=== PATIENT | female | born 1945 | race Caucasian/White ===

== ENCOUNTER 2019-11-04 11:11 | Inpatient (IN) ==
--- NOTE | 2019-10-10 10:13 | PAT Medication Instructions ---
Medication Instructions Date of Service October 10, 2019 Home Medications calcium carbonate-vitamin D3 [Calcium 500 With D] 2 tab PO DAILY coenzyme Q10 [Co Q-10] 100 mg PO DAILY cyanocobalamin (vitamin B-12) [Vitamin B-12] 1,000 mcg PO DAILY multivitamin with minerals 1 ml PO DAILY vitamin B complex 1 tab PO DAILY STOP taking 2 weeks before surgery (or as soon as possible if surgery is within 2 weeks) coenzyme Q10 [Co Q-10] 100 mg PO DAILY DO NOT take the morning of surgery calcium carbonate-vitamin D3 [Calcium 500 With D] 2 tab PO DAILY cyanocobalamin (vitamin B-12) [Vitamin B-12] 1,000 mcg PO DAILY multivitamin with minerals 1 ml PO DAILY vitamin B complex 1 tab PO DAILY Other Notes If you have any questions please call us at [phone] or [phone] or [phone] or [phone]
--- NOTE | 2019-10-11 11:33 | Anesthesiology Consultation ---
Date of Service October 11, 2019 Assessment & Plan (1) Encounter for pre-operative examination: Per PAT assessment on 10/10: Travel screen- Lives in [facility]. Return from travel to [place] 10/07 ([place], [place]). Patient brought food from home, + social distancing/wore mask/frequent hand washing. No public interactions. DOS greater than 2 weeks since return from travel. Patient advised to refrain from further travel until after surgery (she voiced understanding). No known COVID-19 positive contacts. No current COVID-19 related symptoms. Surgeon arranging preop COVID testing. Awaiting results. Chart Review Chart Review: Acceptable Risk for Surgery and Patient seen in Pre Admission Testing Teaching & Discussion Pre-Anesthesia Teaching/Discussion Notes: Instructed NPO after midnight before surgery,except medications with 15 cc of water. Medication instructions provided according to the PAT guidelines. History Surgery Operation Date: 11/04/19 08:30 Proposed Procedures p Left Reverse Total Shoulder Arthroplasty - Luther Carrington, Height/Weight Height: 5 ft 10 in Weight: 79.5 kg Allergies Allergy/AdvReac Type Severity Reaction Status Date / Time Penicillins Allergy Unknown HIVES Verified 09/29/19 11:47 Medications Home Medications Medication Instructions Recorded Confirmed Last Taken calcium carbonate-vitamin D3 2 tab PO DAILY 09/29/19 09/29/19 Unknown [Calcium 500 With D] coenzyme Q10 [Co Q-10] 100 mg PO DAILY 09/29/19 09/29/19 Unknown cyanocobalamin (vitamin B-12) 1,000 mcg PO DAILY 09/29/19 09/29/19 Unknown [Vitamin B-12] multivitamin with minerals 1 ml PO DAILY 09/29/19 09/29/19 Unknown vitamin B complex 1 tab PO DAILY 09/29/19 09/29/19 Unknown Past Medical History Medical History (Updated 10/11/19 @ 15:04 by Vanessa Field) Osteoarthritis Spinal stenosis Exercise / Class Metabolic Activity II 4-5 Yardwork/Stairs/Walk up hill Past Family History Family History Daughter Family history of carcinoma in situ of anal canal, Onset Age: 46 Brother Family hx of colon cancer Other No family history of adverse response to anesthesia Past Surgical History Surgical History (Updated 10/11/19 @ 15:04 by Vanessa Field) History of colonoscopy S/P lumbar laminectomy x2 S/P vaginal hysterectomy Past Anesthesia History Other Patient: "Slow to wake" specifically after hysterectomy ([facility] ~2014). Prolonged stay in the PACU (5 hours) but per patient, was able to be discharged the same day without issue. No known hx of reintubation.* Mother: "slow to wake" History of PONV No Hx of PONV and No Hx of Motion Sickness Social History Smoking Status: Never smoker Do You Dip or Chew Tobacco: No Hx Alcohol Use: Yes alcohol intake frequency: holidays/special occasions only Hx Substance Use: No substance use type: does not use Review of Systems Patient denies chest pain, shortness of breath, dyspnea on exertion, fever, chills, cough, wheezing, palpitations. Physical Exam Vital Signs VITALS BP 116/77 P 68 TEMP 98.3 SP02 100%RA RESP 18 PHYSICAL Full neck and c-spine range of motion. Full TMJ range of motion. TMD 3 finger breaths Mallampati Score 1 Dentition: intact, + implants on left side upper/lower Lungs: clear throughout to auscultation Cardiac: regular rate and rhythm, no murmurs noted Spine: normal Carotid arteries: negative bruit Extremities: no edema Testing Laboratory Results 10/11/19 12:08 10/11/19 12:08 PT 10.6 Seconds (9.0-12.0) 10/11/19 12:08 INR 1.0 (0.9-1.1) 10/11/19 12:08 APTT 25.4 Seconds (21.0-31.0) 10/11/19 12:08 Blood Type A Positive 10/11/19 12:08 Antibody Screen NEGATIVE 10/11/19 12:08 Electrocardiogram Date: 10/11/19 NSR at 72bpm. "Normal ECG." unconfirmed report. Chest X-Ray Date: 10/11/19 Findings: + NAD
--- NOTE | 2019-10-11 12:35 | XRay Report ---
XR chest Pre-admission PA/Lat CLINICAL HISTORY: pat preoperative COMPARISON STUDY: No previous studies for comparison. FINDINGS: The bones soft tissues and hemidiaphragms are normal. The cardiomediastinal silhouette is n ormal. The lungs are clear. The pulmonary vasculature is normal. IMPRESSION: Negative chest. ACT 112: Negative or not required by law. The above report was generated using voice recognition software. It may contain grammatical, syntax or spelling errors. Electronically signed by: Marivn Leonardo M.D. 10/11/2019 12:34 PM
[2019-10-11 13:17] LABS: Basophils # (auto) 0.02 K/uL (0-0.2); Basophils % (auto) 0.4 %; Eosinophils % (auto) 2.1 %; Hematocrit (blood only) 41.5 % (37-47); Hemoglobin 13.5 g/dL (12.0-16.0); Immature Granulocytes # (auto) 0.02 K/uL (0.00-0.02); Immature Granulocytes % (auto) 0.4 %; Lymphocytes # (auto) 1.17 K/uL (1.2-3.4); Lymphocytes % (auto) 24.5 %; Mean Corpuscular Hemoglobin 29.1 pg (25-34); Mean Corpuscular Hgb Conc 32.5 g/dL (32-36); Mean Corpuscular Volume 89.4 fL (80-100); Mean Platelet Volume 11.2 fL (7.4-10.4); Monocytes # (auto) 0.48 K/uL (0.11-0.59); Neutrophils # (auto) 2.99 K/uL (1.4-6.5); Neutrophils % (auto) 62.6 %; Platelet Count 198 K/uL (130-400); RDW Coefficient of Variation 14.3 % (11.5-14.5); RDW Standard Deviation 46.8 fL (36.4-46.3); Red Blood Count 4.64 M/uL (4.2-5.4); White Blood Count 4.78 K/uL (4.8-10.8)
[2019-10-11 13:27] LABS: Partial Thromboplastin Ratio 0.9; Partial Thromboplastin Time 25.4 Seconds (21.0-31.0); Prothrombin Time 10.6 Seconds (9.0-12.0)
[2019-10-11 13:45] LABS: BUN Creatinine Ratio 27.9 (10-20); Calcium 9.4 mg/dl (8.5-10.1); Creatinine Clr Calc Pharmacy 56.2 ml/min; Est GFR (African American) 68.4; Potassium 4.3 mmol/L (3.5-5.1)
--- NOTE | 2019-10-11 16:40 | Electrocardiogram Report ---
Test Reason : Blood Pressure : / mmHG Vent. Rate : 072 BPM Atrial Rate : 072 BPM P-R Int : 164 ms QRS Dur : 078 ms QT Int : 414 ms P-R-T Axes : 079 011 066 degrees QTc Int : 453 ms Normal sinus rhythm Normal ECG No previous ECGs available Confirmed by Curry Sepulveda ([id number]) on 10/11/2019 4:40:27 PM Referred By: Luther Carrington Confirmed By:Pepe Sepulveda
--- NOTE | 2019-11-03 07:55 | History & Physical Report ---
Date of Service November 03, 2019 Assessment & Plan (1) Osteoarthritis, shoulder: Given her weakness and poor function, we will proceed with a left reverse shoulder arthroplasty. Postoperatively she will be placed in a sling and kept overnight in the hospital for postoperative medical management. She plans to go to outpatient physical therapy at [facility] in [place] after discharge. Present on Admission?: Yes History of Present Illness Chief Complaint: Primary osteoarthritis of the left shoulder Primary Care Provider: NO PCP Lucia is a pleasant 74-year-old female who is been having severe shoulder pain and weakness over the past few months. She has been taking care of her . Is to the point where she is unable to lift her arm. X-rays and clinical examination were diagnostic for advanced arthritis of the shoulder with a probable large rotator cuff tear. After failing conservative treatment, she has elected to proceed with a left reverse shoulder arthroplasty. Allergies Allergy/AdvReac Type Severity Reaction Status Date / Time Penicillins Allergy Unknown HIVES Verified 09/29/19 11:47 Home Medications Home Medications Medication Instructions Recorded Confirmed Type calcium carbonate-vitamin D3 2 tab PO DAILY 09/29/19 09/29/19 History [Calcium 500 With D] coenzyme Q10 [Co Q-10] 100 mg PO DAILY 09/29/19 09/29/19 History cyanocobalamin (vitamin B-12) 1,000 mcg PO DAILY 09/29/19 09/29/19 History [Vitamin B-12] multivitamin with minerals 1 ml PO DAILY 09/29/19 09/29/19 History vitamin B complex 1 tab PO DAILY 09/29/19 09/29/19 History Past Med/Surg History Medical History Osteoarthritis Spinal stenosis Surgical History History of colonoscopy S/P lumbar laminectomy x2 S/P vaginal hysterectomy Family History Daughter Family history of carcinoma in situ of anal canal, Onset Age: 46 Brother Family hx of colon cancer Other No family history of adverse response to anesthesia Social History Smoking Status: Never smoker Second Hand Exposure: No; Hx Alcohol Use: Yes Hx Substance Use: No Preferred Language: British Communication Ability: Effective Kiln Placer Required: No Beliefs That Will Affect Care: None Current Living Situation: Spouse Feels Safe at Home: Yes Review of Systems Review of Systems: All systems reviewed & are unremarkable except as noted in HPI & below Physical Exam Constitutional: WD/WN, vitals as above Eyes: PERRL, conjunctivae normal, anicteric sclerae ENMT: external ear and nose normal, oropharynx normal Neck: trachea midline, no thyromegaly Respiratory: normal respiratory effort Cardiovascular: RRR, no murmur, no edema Gastrointestinal (Abdomen): normal bowel sounds, soft, nontender, no hepatosplenomegaly Musculoskeletal: Physical examination of the left shoulder reveals decreased range of motion and crepitis throughout. There is good strength with full can testing and external rotation. There is tenderness palpation along the anterior glenohumeral joint line. The right upper extremity is neurovascularly intact. Psychiatric: A+Ox3, euthymic affect Results & Data Results & Data ([facility]) Diagnostic Findings Radiographs of the left shoulder show osteoarthritis of the glenohumeral joint. There is joint space narrowing, osteophyte formation, and [id number] articulation. PG Care Time/CCT Total # of Minutes Spent Total Time Spent with Patient: Total time spent is greater than 50% in coordination of care (as documented) at patient's floor/unit and/or counseling patient: Coding Level of Care Code 74788 Initial Inpt Care Lvl 2 Diagnoses Osteoarthritis, shoulder M19.019
--- NOTE | 2019-11-04 11:08 | History & Physical Bridge Note ---
Date of Service November 04, 2019 History & Physical Bridge Note I have examined the patient, reviewed the History & Physical and in the interval since the performance of the History & Physical I have noted the following changes of clinical significance: no changes noted
[~2019-11-04 11:11] MED LIST: ACETAMINOPHEN 500 MG TAB PO SCH; BUPIVACAINE 0.5 % 5 MG/1 ML PF 10ML VIAL ONE; CEFAZOLIN 1000MG 1,000 MG/7.5 ML SYR IV SCH; DEXAMETHASONE SOD INJ 4 MG/ML VIAL ONE; FAMOTIDINE 20 MG TAB PO SCH; GABAPENTIN 300 MG CAP PO SCH; LIDOCAINE HCL 2% 2 ML VIAL/AMP(20MG/ML) INFIL ONE; LR 15ML/HR IV SCH; LR 60ML/HR IV SCH; MIDAZOLAM HCL 1 MG/ML 2ML VIAL ONE; Nursing to Pharmacy Communication SCH; ONDANSETRON INJ 2 MG/ML 2 ML VIAL ONE; PROPOFOL IV EMULSION 10 MG/ML 20 ML VIAL IV ONE; ROPIVACAINE 0.5% HCL/PF 150 MG, BUPIVACAINE 0.5% MPF 30 ML, EPINEPHrine 30MG/30ML (OR U... INSTIL SCH; TRANEXAMIC ACID 1,000 MG **IV Intra-op IV SCH; TRANEXAMIC ACID 1,000 MG **IV Pre-op IV SCH; dexAMETHasone 4 MG TAB PO SCH; fentaNYL citrate 100 MCG/2 ML VIAL ONE
[2019-11-04] MEDS ORDERED: ORTHO JOINT ANESTHETIC ONE (12:39)
[2019-11-04] MEDS ORDERED: ePHEDrine sulfate 50 MG/ML SYR ONE ×2 (13:34→13:47)
[2019-11-04] MEDS ORDERED: ePHEDrine sulfate 50 MG/ML AMP ONE (13:47)
--- NOTE | 2019-11-04 14:14 | Operative Report ---
PG Post Operative Report Pre & Post Diagnosis Operation Date: 11/04/19 13:40 Pre-Op Diagnosis: DJD LEFT SHOULDER Post-Op Diagnosis: DJD LEFT SHOULDER with rotator cuff tear and tendinopathy of the long head of the biceps tendon I identified the patient and participated in the time-out.: Yes Procedure Operation Date: 11/04/19 13:40 Actual Procedures p Left Reverse Total Shoulder Arthroplasty with open biceps tenodesis as a distinct and separate procedure (modifier 59) (Left) - Luther Carrington DO Surgeon Luther Carrington DO Director Recreation Luther Carr PAC Estimated Blood Loss 150 Findings Consistent with Post-Op Diagnosis Specimens Left reverse shoulder arthroplasty Complications none Disposition Disposition: Recovery Room Indications Lucia is a pleasant 74-year-old female who is been dealing with chronic increasing left shoulder pain. X-rays and clinical examination are diagnostic for advanced osteoarthritis. On clinical examination, she had significant weakness of the left shoulder. After failing conservative treatment, she elected proceed with a left reverse shoulder arthroplasty. Description of Procedure A CPT code modifier 59: The long head of the biceps tendon was enlarged and inflamed consistent with tendinopathy. A tenodesis was opted. This was a separate and distinct portion of the procedure. For these reasons, a CPT code modifier 59 will be added to this case. Implants used: I used a [employer] Comprehensive reverse total shoulder arthroplasty system with a size 12 press fit micro humeral stem, a standard humeral tray and a standard humeral bearing, a 25 mm baseplate with a 6.5 mm central screw and superior and inferior locking screws, and a size 40 mm eccentric glenosphere. Rosa arrived at [facility] for the above procedure. She was seen in the preoperative holding area and the operative extremity was identified and signed. She was given a preoperative antibiotic, TXA, and an interscalene nerve block. She was taken back to the operating room, laid on table in supine position, and put under general anesthesia. She was then put into the beachchair position. The shoulder was then prepped and draped in sterile fashion. A timeout was done and the patient and the operative extremity was properly identified. A deltopectoral approach was used. Dissection was taken down through the fascia and the deltoid was retracted laterally and the conjoined tendon was retracted medially. The anterior shoulder was exposed. The biceps groove was opened up and the biceps tendon was examined extensively. The biceps tendon demonstrated enlargement and inflammatory changes consistent with longstanding inflammation in the context of osteoarthritis and cuff arthropathy. The long head of the biceps tendon was then tenodesed to the upper border of the pectoralis major. This was a separate and distinct portion of the procedure. The subscapularis was then directly released off the lesser tuberosity with a peel technique. The inferior capsule was released and the humeral head was dislocated. A canal finding reamer was sent down the center of the humeral canal. Sequential reaming up to a size 12 reamer was done. Off that reamer, a proximal humeral resection guide was placed. The proximal humerus was resected at 135 of inclination and 25 of retroversion. Osteophytes were then removed and the glenoid was exposed. Time was spent doing a complete capsular and labral release. The glenoid guide was then placed in the inferior aspect of the glenoid. A 3.2 mm Steinmann pin was then placed into the glenoid vault at 10 of inclination. The glenoid baseplate was then reamed. The final size 25 mm baseplate was then impacted in the place. A 6.5 mm central screw was then placed followed by sup erior and inferior locking screws. A 40 mm eccentric glenosphere was then impacted into place. Surrounding soft tissues were then injected with 100 cc an orthopedic pain control cocktail. The proximal humerus was then exposed. Sequential broaching of the humerus up to a size 12 broach was done. Off that broach a standard humeral tray was trialed. The shoulder was then reduced, brought through a full range of motion, and felt to be stable. The shoulder was then dislocated and the broach was removed. The final size 12 micro press-fit humeral stem was then impacted into place. A standard humeral bearing was then snapped onto a standard humeral tray. The humeral tray was then impacted onto the humeral stem. The shoulder was once again reduced, brought through a full range of motion, and felt to be stable. The subscapularis was then tenodesed back to the lesser tuberosity with transosseous FiberWire sutures and side to side sutures with the arm in 45 of external rotation. A dilute betadyne lavage was then done for 3 minutes. The joint was then irrigated with normal saline solution. Hemostasis was obtained. The interval was closed with 2-0 Vicryl suture. The skin was then closed with 2-0 Vicryl and neo. A Silverlon dressing was placed and the arm was rested in a regular arm sling. She was then extubated and transferred to a hospital bed. She taken to the postanesthesia care unit in stable condition. She tolerated the procedure well. Luther Carr PA-C, was present for the entire procedure. He was critical for patient positioning, prepping, draping, retraction exposure, wound closure and application of sterile dressing. I attest to the content of the Intraoperative Record and any orders documented therein. Any exceptions are noted below.
--- NOTE | 2019-11-04 15:03 | XRay Report ---
XR shoulder LT min 2V routine CLINICAL HISTORY: Post shoulder surgery COMPARISON STUDY: None. FINDINGS: Status post reverse left total shoulder arthroplasty. The hardware is intact. Skin neo are in place. No fracture or dislocation within the left shoulder. IMPRESSION: Status post reverse left total shoulder arthroplasty. No evidence for hardware complicat ion. ACT 112: Negative or not required by law. Electronically signed by: Rakesh Bucio M.D. 11/04/2019 3:02 PM
--- NOTE | 2019-11-04 15:03 | Anesthesiology Progress Note ---
Date of Service November 04, 2019 Anesthesia Post Procedure Vital Signs Vital Signs: Temp Pulse Pulse Resp BP Pulse Ox 11/04/19 15:00 102 H 16 126/67 96 11/04/19 14:50 107 H 16 112/70 97 11/04/19 14:40 103 H 16 131/70 97 11/04/19 14:33 36.2 C L 110 H 16 135/70 97 11/04/19 12:03 36.6 C 75 18 154/71 H 95 Transfer of Care Handoff Completed per policy Notes Mental Status: alert / awake / arousable Patient Amnestic to Procedure: Yes Nausea / Vomiting: adequately controlled Pain: adequately controlled Airway Patency, RR, SpO2: stable & adequate BP & HR: stable & adequate Hydration State: stable & adequate Anesthetic Complications: no major complications apparent Notes: block working well in pacu
[2019-11-04] MEDS ORDERED: ONDANSETRON INJ 2 MG/ML 2 ML VIAL IV PRN (15:44)
[2019-11-04] MEDS ORDERED: bisacodyL 10 MG SUPP PR PRN (15:44)
[2019-11-04] MEDS ORDERED: METOCLOPRAMIDE HCL INJ 5 MG/ML 2 ML VIAL IV PRN (15:44)
[2019-11-04] MEDS ORDERED: HYDROmorphone INJ 0.5 MG/0.5 ML SYR IV PRN (15:44)
[2019-11-04] MEDS ORDERED: MAGNESIUM HYDROXIDE SUSP 30 ML UDC PO PRN (15:44)
[2019-11-04] MEDS ORDERED: NALOXONE HCL 0.4 MG/1 ML VIAL/CARP IV PRN (15:44)
[2019-11-04] MEDS ORDERED: OXYCODONE HCL IR 5 MG TAB (IMMEDIATE RELEASE) PO PRN (15:44)
[2019-11-04] MEDS ORDERED: PNEUMOCOCCAL POLYSACCHARIDES 25 MCG/0.5 ML VIAL/SYR IM ONE (15:52)
[2019-11-04] MEDS ORDERED: PNEUMOCOCCAL ADMINISTRATION CHARGE ONE (15:52)
[2019-11-04] MEDS: KETOROLAC TROMETHAMINE 15 MG/ML VIAL IV SCH (17:18)
[2019-11-04] MEDS: SODIUM CHLORIDE 0.9% 1000ML 1,000 ML IV SCH (17:18)
[2019-11-04] MEDS: CEFAZOLIN 2000MG 2,000 MG/15 ML SYR IV SCH (20:39)
[2019-11-04] MEDS: DOCUSATE SODIUM 100 MG CAP PO SCH (20:42)
[2019-11-04] MEDS ORDERED: SENNA 8.6 MG TAB PO SCH (21:00)
[2019-11-04] MEDS: ACETAMINOPHEN 500 MG TAB PO SCH (22:10)
[2019-11-05] MEDS: KETOROLAC TROMETHAMINE 15 MG/ML VIAL IV SCH ×2 (00:09→05:15)
[2019-11-05] MEDS: SODIUM CHLORIDE 0.9% 1000ML 1,000 ML IV SCH (01:56)
[2019-11-05] MEDS: CEFAZOLIN 2000MG 2,000 MG/15 ML SYR IV SCH (05:14)
[2019-11-05] MEDS: ACETAMINOPHEN 500 MG TAB PO SCH (05:15)
[2019-11-05 06:06] LABS: Eosinophils # (auto) 0.01 K/uL (0-0.5); Eosinophils % (auto) 0.1 %; Hemoglobin 11.5 g/dL (12.0-16.0); Immature Granulocytes # (auto) 0.02 K/uL (0.00-0.02); Immature Granulocytes % (auto) 0.2 %; Lymphocytes # (auto) 0.86 K/uL (1.2-3.4); Mean Corpuscular Hemoglobin 28.8 pg (25-34); Mean Corpuscular Hgb Conc 32.9 g/dL (32-36); Mean Corpuscular Volume 87.5 fL (80-100); Mean Platelet Volume 10.5 fL (7.4-10.4); Monocytes # (auto) 0.83 K/uL (0.11-0.59); Monocytes % (auto) 7.7 %; Neutrophils # (auto) 9.08 K/uL (1.4-6.5); Platelet Count 139 K/uL (130-400); RDW Coefficient of Variation 14.2 % (11.5-14.5); RDW Standard Deviation 45.5 fL (36.4-46.3)
[2019-11-05 06:38] LABS: BUN Creatinine Ratio 22.1 (10-20); Calcium 8.5 mg/dl (8.5-10.1); Creatinine Clr Calc Pharmacy 54.5 ml/min; Est GFR (African American) 65.9; Est GFR (Non-African American) 56.8; Potassium 4.5 mmol/L (3.5-5.1)
--- NOTE | 2019-11-05 07:55 | Orthopedic Progress Note ---
Date of Service November 05, 2019 Assessment & Plan (1) Status post reverse arthroplasty of left shoulder: Overall she is doing very well. She will be seen by physical therapy this morning for ambulation and range of motion exercises. She can be discharged home later today. She will follow-up with orthopedics in 2 weeks. Present on Admission?: Yes Admission and Anticipated Discharge Date Admission Date: November 04, 2019 Jaky Myers was seen and examined at bedside this morning. Overall she is doing very well. She is not having any pain in the left shoulder. The nerve block is still working. She was able to get some sleep last night. She has no complaints. Physical Exam Musculoskeletal: On physical examination of the left shoulder, the Silverlon dressing is clean and dry. She is wearing her sling as instructed. She does not have any movement of her wrist or fingers yet, the nerve block is still working. Results & Data ([facility]) Vital Signs (Past 12 Hours) Vital Signs Temp Pulse Resp BP Pulse Ox 11/05/19 07:32 36.4 C L 16 94/60 L 95 11/05/19 03:05 36.4 C L 89 16 99/63 L 96 11/04/19 23:17 36.5 C 95 H 18 97/61 L 94 Laboratory Results H & H 10/11/19 11/05/19 Range/Units 12:08 05:42 Hgb 13.5 11.5 L (12.0-16.0) g/dL Hct 41.5 35.0 L (37-47) % Coagulation 10/11/19 Range/Units 12:08 INR 1.0 (0.9-1.1) Diagnostic Findings Postoperative x-rays of the left shoulder show the prosthesis to be in anatomic alignment without any evidence of fracture, dislocation, or loosening. PG Care Time/CCT Total # of Minutes Spent Total Time Spent with Patient: Total time spent is greater than 50% in coordination of care (as documented) at patient's floor/unit and/or counseling patient: Coding Level of Care Code None Diagnoses Status post reverse arthroplasty of left shoulder Z96.612
--- NOTE | 2019-11-05 07:56 | Discharge Summary ---
Date of Service November 05, 2019 Admission HPI Per Admitting Provider Lucia is a pleasant 74-year-old female who is been having severe shoulder pain and weakness over the past few months. She has been taking care of her . Is to the point where she is unable to lift her arm. X-rays and clinical examination were diagnostic for advanced arthritis of the shoulder with a probable large rotator cuff tear. After failing conservative treatment, she has elected to proceed with a left reverse shoulder arthroplasty. Principal Diagnosis Left reverse shoulder replacement Discharge Data Allergies Allergy/AdvReac Type Severity Reaction Status Date / Time Penicillins Allergy Unknown HIVES Verified 11/04/19 11:44 Consultations 11/04/19 15:44 Consult Case Management - Discharge Planning Routine Procedures Performed Operation Date: 11/04/19 13:40 Actual Procedures p Left Reverse Total Shoulder Arthroplasty(Left) - Luther Carrington DO Ordered Studies 11/04/19 05:00 US - OR guided needle placemen Routine Hospital Course (1) Status post reverse arthroplasty of left shoulder: On November 04, 2019 Lucia arrived at [facility] and underwent a left reverse shoulder arthroplasty without complication. She had a general anesthetic and a left interscalene nerve block. Postoperatively she was placed in an arm sling and transferred to the general orthopedic floors. Her hospital course was uneventful. On postop day #1 her H&H was stable and her pain was well controlled. She was able to participate well with physical therapy doing ambulation and range of motion exercises. She was then discharged home. She will follow-up with orthopedics in 2 weeks. Total Time Total Time Spent Total Time Spent (In Minutes): 20 Discharge Plan Discharge Items Patient Disposition: Home - Home Health Services Reason For Visit: DJD LEFT SHOULDER Discharge Diagnosis: Left reverse shoulder Activity: As commented below Non-emergency contact: Surgeon Call non-emergency contact if: your wound has increased redness and your wound has increased drainage Follow-up/Referrals: PCP,NO [Primary Care Provider] - Diet: Regular Addtl Attending Provider Instructions: Activity and Therapy Recommendations: * If you are using [facility] then therapy will be provided at your home until they feel you have accomplished all of your goals. * If you are using [facility] then Physical Therapy will be provided until they feel you are ready to start Outpatient Physical Therapy. * If you are not using home therapy then Outpatient Physical Therapy should start about 3-5 days from your day of surgery. Therapy will last about 8-12 weeks * Wear your sling for 3 weeks, unless otherwise instructed. You may remove your sling to shower and to dress, but otherwise, you should be in your sling at all times, including while sleeping * The shoulder replacement is very stable and you can use your hand while in the sling * You were shown a series of exercises in the hospital. Do these exercises daily including the exercises you were shown in physical therapy. Medications: * Narcotic You will likely be sent home from the hospital with a prescription for the narcotic pain medication that worked best throughout your stay. * Other medications may be prescribed for specific circumstances. If you have any questions, please call the office at . * Resume previous home medications unless otherwise instructed Dressing Care: Leave the Silverlon dressing in place for 7 days. After 7 days you may remove the dressing. If the incision is not draining then you may leave the neo open to air. If there is a little bit of drainage or if the neo are getting stuck on your clothing then cover the incision with a dry dressing. The neo will be removed at your 2 week follow-up appointment. Showering: You may shower with the Silverlon dressing in place. Do not let the shower spray hit the dressing directly. Pat the Silverlon dressing dry. If the dressing becomes wet underneath, then simply remove the dressing. Keep the incision dry until you are 7 days out from the day of surgery. After 7 days you may remove the Silverlon dressing and shower with the neo exposed. Let soapy water run over the neo and pat them dry. Do not scrub or soak the incision. Things To Watch For: * Drainage from the incision site that occurs more than one week after your surgery. * Increased redness at the incision site. * Fever above 102 degrees Fahrenheit. * Unusual chest pain or shortness of breath. * Call [facility] at with any of the above problems Follow-Up Visit: Follow-up with Dr. Carrington's PA (Luther Carr) 2-3 weeks after your day of surgery. He will remove your neo and answer any questions. If you have any additional questions or concerns, Dr Carrington is usually in the office at the same time and will be available An appointment was probably scheduled when you signed-up for surgery in the office. If you have any questions call More detailed instructions as well as Frequently Asked Questions were provided in a folder by our office when you signed-up for surgery. Please review these instructions when you get home. If you have any further questions or concerns, please feel free to call the office at [phone] Pending Studies at Discharge: No Stand-Alone Forms: [facility] Medications and DC Order Prescriptions: New tramadol 50 mg tablet 50 mg PO Q8H PRN (Reason: pain) Qty: 30 RF: 0 Continued cyanocobalamin (vitamin B-12) [Vitamin B-12] 1,000 mcg Tablet 1,000 mcg PO DAILY RF: 0 vitamin B complex Tablet 1 tab PO DAILY RF: 0 coenzyme Q10 [Co Q-10] 100 mg Capsule 100 mg PO DAILY RF: 0 calcium carbonate-vitamin D3 [Calcium 500 With D] 500 mg(1,250mg) -400 unit Tablet 2 tab PO DAILY RF: 0 multivitamin with minerals Liquid 1 ml PO DAILY RF: 0 Discharge Orders: Discharge Order (Routine); Ordered 11/05/19 Ordered By: Luther Carrington Admission Data Admit Date/Time: 11/04/19 14:34 Attending Provider: Luther Carrington Admit Provider: Luther Carrington Primary Care Provider: PCP,NO Coding Level of Care Code D/C Day Management <30 mins Diagnoses Status post reverse arthroplasty of left shoulder Z96.612
[2019-11-05] MEDS ORDERED: dexAMETHasone 4 MG TAB PO SCH (08:00)
[2019-11-05] MEDS: DOCUSATE SODIUM 100 MG CAP PO SCH (08:34)
[2019-11-05] MEDS ORDERED: MULTIVITAMIN TAB PO SCH (09:00)
== END 2019-11-05 10:38 | disposition home or self-care (01) | DRG 483 ==
LOC: ASU 11:11 → 3E 14:34